=== PATIENT | male | born 1950 | race Caucasian/White ===

== ENCOUNTER 2020-09-25 17:36 | Emergency (ER) | payer MEDICARE ==
[~2020-09-25] VITALS: Ht 175.3 cm; Wt 84.1 kg
[2020-09-25 17:46] VITALS: TEMP 98.7
[2020-09-25 19:02] LABS: COLLECTION METHOD CLEAN CATCH
[2020-09-25 19:12] LABS: BASO # 0.1 (0.0-0.2); BASO % 0.6 % (0.0-2.0); EOS # 0.5 (0.0-0.7); EOS % 5.7 % (0-4.0); GRAN # 5.1 (1.4-6.5); GRAN % 54.1 % (42.2-75.2); HEMATOCRIT 38.6 % (42.0-52.0); HEMOGLOBIN 12.9 g/dl (13.5-18.0); LYMPH # 2.8 (1.2-3.4); LYMPH % 30.4 % (20.0-51.0); MEAN CELL VOLUME 88 fl (80.0-100.0); MEAN CORPUSCULAR HEMOGLOBIN 29 pg (27.0-31.0); MEAN CORPUSCULAR HGB CONC 33 g/dl (33.0-37.0); MEAN PLATELET VOLUME 11.7 fl (7.4-10.4); MONO # 0.8 (0.1-0.6); MONO % 8.9 % (1.7-9.3); PLATELET COUNT 195 K/mm3 (130-400); REDCELL DISTRIBUTION WIDTH-CV 13.5 % (11.5-14.5)
[2020-09-25 19:14] LABS: MUCOUS Present /lpf; PH 5 (5-8); URINE APPEARANCE Hazy; URINE BACTERIA Rare /hpf; URINE BILIRUBIN Negative (NEGATIVE); URINE BLOOD 3+ (NEGATIVE); URINE COLOR Yellow; URINE GLUCOSE 1+ (NEGATIVE); URINE KETONE Negative (NEGATIVE); URINE LEUKOCYTE ESTERASE Negative (NEGATIVE); URINE NITRATE Negative (NEGATIVE); URINE PROTEIN(semi-quant) 2+ (NEGATIVE); URINE RBC >50 /hpf; URINE UROBILINOGEN Negative (NEGATIVE)
[2020-09-25 19:21] LABS: BILIRUBIN,TOTAL 0.6 mg/dL (0.0-1.0); CALCIUM 10.2 mg/dL (8.4-10.2); POTASSIUM 4.7 mmol/L (3.4-5.0); TOTAL PROTEIN 6.5 gm/dL (6.4-8.2)
[2020-09-25] MEDS ORDERED: NAPROSYN 2250 MG/TAB PO (22:43)
[2020-09-25] MEDS ORDERED: ZOFRAN ODT4 MG PO (22:43)
[2020-09-25] MEDS ORDERED: PERCOCET 325 MG1 TA2 PO (22:43)
[2020-09-25 23:25] VITALS: BP 159/86; PULSE 97
== END 2020-09-25 23:25 | disposition home or self-care (01) ==
LOC: COL.ER 17:36
PROVIDERS: Family Medicine
DX: R10.9 Unspecified abdominal pain (principal); R33.9 Retention of urine, unspecified; I25.10 Atherosclerotic heart disease of native coronary artery without angina pectoris
CPT/HCPCS: J1170; J2405; Q9967

== ENCOUNTER 2022-05-10 06:52 | Day surgery (SDC) | payer MEDICARE ==
[~2022-05-10] VITALS: Ht 175.3 cm; Wt 83.5 kg
[~2022-05-10 06:52] MED LIST: NAPROSYN 2250 MG/TAB PO; PERCOCET 325 MG1 TA2 PO; PYRIDIUM 100MG100 MG PO; ZOFRAN ODT4 MG PO
[2022-05-10] MEDS ORDERED: GLUCOPHAGE1000 MG PO (07:18)
[2022-05-10] MEDS ORDERED: LIPITOR 80MG80 MG PO (07:19)
[2022-05-10] MEDS ORDERED: PLAVIX 75MG TAB75 MG PO (07:19)
[2022-05-10] MEDS ORDERED: VASCEPA1 GM PO (07:20)
[2022-05-10] MEDS ORDERED: CARTIA XT240 MG PO (07:21)
[2022-05-10] MEDS ORDERED: ASPIRIN E.C. 8181 MG PO (07:22)
[2022-05-10] MEDS ORDERED: VITAMIN D31000 I1 PO (07:22)
[2022-05-10 07:45] VITALS: BP 126/67; PULSE 61; TEMP 97
[2022-05-10 08:33] VITALS: BP 120/83; PULSE 73
[2022-05-10 08:35] VITALS: BP 97/55; PULSE 62; TEMP 97.2
--- NOTE | 2022-05-10 08:43 | NUR ---
0835 - PT arrives and was assited from cart to chair 2:1 via ambulation. PT is drowsy but oriented x4. Monitors applied and vitals obtained; warm blankets provided and non-slip socks are on. PT denies pain and nausea; oriented to room and call pacheco, within reach. PT provided snack and drink; requested be brought into room. Will monitor per intervals.
[2022-05-10 08:50] VITALS: BP 105/36; BP 105/63; PULSE 62
[2022-05-10 09:05] VITALS: BP 106/62; PULSE 59
--- NOTE | 2022-05-10 09:28 | NUR ---
0905 - Vitals obtained. PT expressed desire to be discharged. PT has finished snack and drink; denies pain and nasuea. Call pacheco within reach 0915 - DC instructions and educational material reviewed w/ PT who verbalized understanding and signed the realted paperwork. Questions answered to PT satisfaction. IV discontinued. Catheter tip intact. Pressure bandage applied. NO redness or swelling. PT refused RN assistance changing into personal belongings; call pacheco within reach if needed. remains present and states will assist.
--- NOTE | 2022-05-10 09:31 | NUR ---
0930 - PT dismissed from endo via wheelchair to PT entrence by Roxann VILLAVICENCIO. PT has DC packet and personal belongings; and was transferred into the care of his , who is driving private car.
== END 2022-05-10 09:40 | disposition home or self-care (01) ==
LOC: SDCO 06:52
DX: Z12.11 Encounter for screening for malignant neoplasm of colon (principal); D12.4 Benign neoplasm of descending colon; K64.1 Second degree hemorrhoids; K64.4 Residual hemorrhoidal skin tags
CPT/HCPCS: J2704; J7120

== ENCOUNTER 2024-04-16 02:55 | Observation (INO) | payer MEDICARE ==
[~2024-04-16] VITALS: Ht 172.7 cm; Wt 80.9 kg
[2024-04-16] VITALS (9 sets, daily range): BP systolic 130–167; BP diastolic 53–75; PULSE 50–62; TEMP 97.6–98.5
[~2024-04-16 02:55] MED LIST changes: +ASPIRIN E.C. 8181 MG PO; +CARTIA XT240 MG PO; +GLUCOPHAGE1000 MG PO; +GLUCOPHAGE500 MG/TAB PO; +LIPITOR 80MG80 MG PO; +PLAVIX 75MG TAB75 MG PO; +VASCEPA1 GM PO; +VITAMIN D31000 I1 PO
[2024-04-16 03:15] LABS: HEMATOCRIT 42.1 % (42.0-52.0); MEAN CELL VOLUME 91 fl (80.0-100.0); MEAN CORPUSCULAR HEMOGLOBIN 30 pg (27-31); MEAN CORPUSCULAR HGB CONC 33 g/dl (33.0-37.0); MEAN PLATELET VOLUME 11.7 fl (7.4-10.4); PLATELET COUNT 208 K/mm3 (130-400); RED BLOOD COUNT 4.61 M/mm3 (4.20-5.60); REDCELL DISTRIBUTION WIDTH-CV 14.7 % (11.5-14.5)
[2024-04-16] MEDS ORDERED: Morphine 4 MG/ML VIAL IV ONE ×2 (03:15→04:00)
[2024-04-16] MEDS ORDERED: NS 1,000 ML IV ONE (03:15)
[2024-04-16] MEDS ORDERED: Ondansetron 4 MG/2 ML VIAL IV ONE (03:15)
[2024-04-16 03:34] LABS: ALBUMIN 4.1 g/dL (3.4-4.8); CALCIUM 10.6 mg/dL (8.4-10.2); CREATININE, serum 1.6 mg/dL (0.72-1.25); POTASSIUM 4.3 mEq/L (3.5-4.5); TOTAL PROTEIN 7.2 g/dl (6.2-8.1)
[2024-04-16 03:35] LABS: EOSINOPHIL 1 % (0-4); LYMPHOCYTE 29 % (20.0-51.0); NEUTROPHILS 65 % (42.0-75.2)
[2024-04-16 03:36] LABS: PLATELET ESTIMATE NORMAL (NORMAL)
[2024-04-16 03:46] LABS: BILIRUBIN,TOTAL 0.4 mg/dL (0.2-1.2)
[2024-04-16] MEDS ORDERED: NS 50 ML IV SCH (03:56)
[2024-04-16] MEDS ORDERED: Iodixanol-320 100 ML BOTTLE IV ONE (03:56)
[2024-04-16 04:08] LABS: COLLECTION METHOD CATHETER
[2024-04-16 04:17] LABS: URINE APPEARANCE CLOUDY (CLEAR/HAZY); URINE BLOOD 3+ (NEGATIVE); URINE COLOR YELLOW (YELLOW); URINE GLUCOSE NEGATIVE (NEGATIVE); URINE KETONE 1+ (NEGATIVE); URINE NITRATE NEGATIVE (NEGATIVE); URINE PROTEIN(semi-quant) 1+ (NEGATIVE)
[2024-04-16 04:32] LABS: SQUAMOUS EPITHELIAL NONE SEEN /hpf (0-10); URINE BACTERIA RARE /hpf (NONE SEEN); URINE CALCIUM OXALATE CRYSTAL PRESENT (NOT PRESENT); URINE WBC 0-2 /hpf (0-2)
[2024-04-16] MEDS ORDERED: PRINIVIL5 MG PO (05:43)
[2024-04-16] MEDS ORDERED: TRADJENTA5 MG PO (05:46)
--- NOTE | 2024-04-16 05:48 | NUR ---
Report recieved from MAYE Rincon from ED. All questions answered at this time.
--- NOTE | 2024-04-16 06:01 | NUR ---
Patient arrived to room 317 at this time with personal belongings and at bedside. Rates pain at 2/10 at this time, denies need for pain meds. Denies any needs. Assessment and med rec complete. VS and blood glucose obtained. IV in left forearm flushes easliy without complications, maintenance fluids started. Oriented patient to room, call light, bed, tv, and bathroom. Call light and personal items in reach. Bed in low position.
[2024-04-16] MEDS ORDERED: cefTRIAXone 1 G in Water For Injection,Sterile 10 ML IV SCH (06:15)
[2024-04-16] MEDS ORDERED: NS 1,000 ML IV SCH (06:15)
[2024-04-16] MEDS ORDERED: Ondansetron 4 MG/2 ML VIAL IV PRN (06:15)
[2024-04-16] MEDS ORDERED: Acetaminophen 500 MG TAB PO PRN (06:15)
[2024-04-16] MEDS ORDERED: Polyethylene Glycol 3350 17 GM PDS PO PRN (06:15)
[2024-04-16] MEDS ORDERED: Insulin Lispro (HumaLOG) SQ SCH (06:17)
[2024-04-16] MEDS ORDERED: Dextrose (Glucose) 15 GM (4 x 3.75 GM) Chewable TABLET PACK PO PRN (06:30)
[2024-04-16] MEDS ORDERED: Dextrose 50% Water 25 GM/50 ML SYRINGE IV PRN (06:30)
[2024-04-16] MEDS ORDERED: Glucagon 1 MG VIAL IM PRN (06:30)
--- NOTE | 2024-04-16 07:36 | NUR ---
Bedside report received from MAYE Pozo. Pt awake in bed with at bedside. Call light within reach.
--- NOTE | 2024-04-16 07:40 | NUR ---
Attempted to call Dr. Jeff at this time. Unable to reach at this time. Will pass on to day nurse.
--- NOTE | 2024-04-16 08:00 | NUR ---
Dr. Jacinto notfied by phone of consult.
[2024-04-16] MEDS ORDERED: Pantoprazole 40 MG in NS 10 ML IV SCH (09:00)
--- NOTE | 2024-04-16 09:20 | NUR ---
Pt resting in bed with eyes closed upon entry to room. Shift assessment completed. VSS. Pt denies pain at this time stating he has found a comfortable position in bed to ease flank pain. IVF infusing into Lt forearm with no complications. NPO status in place. Pt ambulates in room independently with no complications. Bedside urinal emptied with a total of 150 mL of clear tea-colored urine. Pt has no complaints at this time. Call light within reach.
[2024-04-16] MEDS ORDERED: DULCOLAX TAB5 MG PO (09:53)
[2024-04-16] MEDS ORDERED: TYLENOL 325MG325 MG PO (09:54)
--- NOTE | 2024-04-16 13:13 | NUR ---
milking worker met with patient to discuss discharge planning. Patient reports to live in [place] with his , Lety, P# [phone]. PCP is Dr. Arreola, Pharmacy is [facility] at [facility]. Patient reports he has had a couple of medications that were expensive but they were switched to a medication that was more affordable. DMEis glucose monitoring and a blood pressure cuff that he wears on his wrist. Patient reports to be independent with ADLS. Patient reports he is able to transport to and from appointments. Patient would like to return home at time of discharge. YUE spoke with Lety, patient's , to discuss discharge plan. Lety is in agreement with patient returning home. Lety has no questions or concerns for the licensed social worker. Discharge plan: Home
[2024-04-16] MEDS ORDERED: Lidocaine 2% (20 MG/ML) 20 ML UROJET RC PRN (15:45)
--- NOTE | 2024-04-16 18:28 | NUR ---
VORB for Flomax 0.4 mg PO HS and ADA diet received from Dr. Jeff when rounding on medical floor.
--- NOTE | 2024-04-16 18:48 | NUR ---
Bedside report given to MAYE Pozo. Pt awake in bed with no complaints. Call light within reach.
--- NOTE | 2024-04-16 22:40 | NUR ---
Patient resting in bed. Rates his pain at 5/10 at this time, prn pain meds given. Assessment complete. IV in left forearm flushes easliy without complications. Call light and personal items in reach. Bed in low position.
[2024-04-17 01:42] VITALS: BP_SYST 154
[2024-04-17 03:35] VITALS: BP 156/67; PULSE 50; TEMP 98
[2024-04-17 04:28] VITALS: BP_SYST 156
[2024-04-17 05:57] LABS: BASO % 0.5 % (0.0-2.0); EOS # 0.1 K/mm3 (0.0-0.7); EOS % 1.4 % (0.0-4.0); GRAN # 5.3 K/mm3 (1.4-6.5); GRAN % 60.3 % (42.2-75.2); LYMPH # 2.4 K/mm3 (1.2-3.4); LYMPH % 26.6 % (20.0-51.0); MEAN CELL VOLUME 91 fl (80.0-100.0); MEAN CORPUSCULAR HGB CONC 33 g/dl (33.0-37.0); MEAN PLATELET VOLUME 12.5 fl (7.4-10.4); MONO % 10.9 % (1.7-9.3); PLATELET COUNT 146 K/mm3 (130-400); RED BLOOD COUNT 3.48 M/mm3 (4.20-5.60); REDCELL DISTRIBUTION WIDTH-CV 14.9 % (11.5-14.5)
[2024-04-17 06:03] LABS: HEMATOCRIT 31.6 % (42.0-52.0); HEMOGLOBIN 10.4 g/dl (13.5-18.0); MEAN CORPUSCULAR HEMOGLOBIN 30 pg (27-31)
[2024-04-17 06:14] LABS: CALCIUM 9.1 mg/dL (8.4-10.2); CREATININE, serum 1.42 mg/dL (0.72-1.25)
--- NOTE | 2024-04-17 07:28 | NUR ---
Bedside report received from MAYE Pozo. Pt awake in bed with complaints of pain rating 6/10. PRN Tylenol administered as ordered. Pt has no other complaints at this time. Call light within reach.
[2024-04-17 07:44] VITALS: BP 134/63; PULSE 87; TEMP 98.5
--- NOTE | 2024-04-17 08:19 | NUR ---
Pt awake in bed upon entry to room. Pain reassessed and pt states that his pain has slowly eased. Pt rates pain at this time 3/10. Shift assessment completed. VSS. IVF infusing into Lt forearm with no complications. 150 mL of tea-colored urine strained from urinal with no stone present in straining of urine. Pt dropped prescribed suppository and this nurse wasted suppository with MAYE Brown as witness into drug buster. New suppository obtained and administered to pt. Pt has no complaints at this time. Call light within reach.
[2024-04-17 08:23] VITALS: BP_SYST 134
[2024-04-17] MEDS ORDERED: FLOMAX 0.40.4 MG/CAP PO (09:09)
[2024-04-17] MEDS ORDERED: SENOKOT S 50 MG1 TAB PO (09:11)
[2024-04-17] MEDS ORDERED: ANUSOL-HC SUPPO25 MG RC (09:11)
[2024-04-17] MEDS ORDERED: CEFTIN500 MG PO (09:11)
[2024-04-17] MEDS ORDERED: MIRALAX510G PO (09:12)
[2024-04-17] MEDS ORDERED: NORCO 325 MG-51 TAB PO (09:16)
--- NOTE | 2024-04-17 10:52 | NUR ---
Discharge instructions provided to pt and pt verbalized understanding of discharge paperwork. INT to Lt foerarm discontinued with tip intact, pt tolerated well with no complaints. Pt is leaving facility with back to home.
== END 2024-04-17 10:50 | disposition home or self-care (01) ==
LOC: COL.ER 02:55 → MEDICAL 05:26
PROVIDERS: Emergency Medicine; Nurse Practitioner; ADMIT Internal Medicine
DX: N13.2 Hydronephrosis with renal and ureteral calculous obstruction (principal); E83.52 Hypercalcemia; E87.29 Other acidosis; K64.9 Unspecified hemorrhoids; E87.20 Acidosis, unspecified; E11.9 Type 2 diabetes mellitus without complications; E78.5 Hyperlipidemia, unspecified; Z79.84 Long term (current) use of oral hypoglycemic drugs; Z95.5 Presence of coronary angioplasty implant and graft; Z95.1 Presence of aortocoronary bypass graft; Z86.73 Personal history of transient ischemic attack (TIA), and cerebral infarction without residual deficits
CPT/HCPCS: G0378; J0696; J2270; J2405; J2470; J7030; Q9967